=== PATIENT | male | born 1955 | race Caucasian/White ===

== ENCOUNTER 2017-05-21 08:06 | Day surgery (SDC) | payer OTHER ==
[2017-05-19 11:34] VITALS: BMI 47.5
[~2017-05-21 08:06] MED LIST: LACTATED RINGERS 1,000 ML IV SCH; LIDOCAINE 1% 20 ML VIAL (10MG/ML) FOR IV START INTRADERMA PRN
[2017-05-21 09:12] VITALS: RESP 18; TEMP 98.1
[2017-05-21] MEDS ORDERED: PROPOFOL 10 MG/ML 20 ML VIAL IV ONE ×2 (09:31)
[2017-05-21] MEDS ORDERED: MIDAZOLAM 2 MG/2 ML VIAL ONE (09:31)
[2017-05-21] MEDS ORDERED: fentaNYL (PF) 50 MCG/ML 2 ML AMP ONE (09:31)
[2017-05-21] MEDS ORDERED: LIDOCAINE 1% INJ 10MG/ML (20 ML MDV) ONE ×2 (09:31)
--- NOTE | 2017-05-21 09:35 | P.GSHP ---
History of Present Illness H&P Date: 05/21/17 Chief Complaint: History of right colon cancer This a 61-year-old male who has a previous history of right colon cancer. Patient underwent laparoscopic right colectomy. He presents today for screening colonoscopy. Past Medical History Past Medical History: Cancer, Deep Vein Thrombosis (DVT), GERD/Reflux, Hypertension Additional Past Medical History / Comment(s): swelling ankles, DVT left leg in the 80's, carpal tunnel, varicose veins, hx colon cancer-no chemo/radiation History of Any Multi-Drug Resistant Organisms: None Reported Past Surgical History: Bowel Resection, Hernia Repair, Joint Replacement, Orthopedic Surgery Additional Past Surgical History / Comment(s): 06/03/16 total L knee arthroplasty. Other surgical hx: Feb 2015 RT COLECTOMY, arthroscopy left knee,carpel tunnel Past Anesthesia/Blood Transfusion Reactions: Previous Problems w/ Anesthesia Additional Past Anesthesia/Blood Transfusion Reaction / Comment(s): woke up during knee surgery Smoking Status: Former smoker - Past Family History Mother Family Medical History: Cancer Additional Family Medical History / Comment(s): THROAT,BREAST Father Family Medical History: Cancer Additional Family Medical History / Comment(s): COLON Brother(s) Family Medical History: Cancer Medications and Allergies Home Medications Medication Instructions Recorded Confirmed Type Ascorbic Acid [Vitamin C] 1,000 mg PO DAILY 02/07/15 05/21/17 History Hydrochlorothiazide [Hydrodiuril] 12.5 mg PO DAILY 02/07/15 05/21/17 History Metoprolol Succinate (ER) [Toprol 25 mg PO QAM 02/07/15 05/21/17 History XL] Multivitamins, Thera [Multivitamin 1 tab PO DAILY 02/07/15 05/21/17 History (formulary)] Omeprazole [PriLOSEC] 40 mg PO DAILY 02/07/15 05/21/17 History Sertraline [Zoloft] 50 mg PO QAM 02/07/15 05/21/17 History Sildenafil Citrate [Viagra] 100 mg PO DAILY PRN 02/07/15 05/21/17 History Vitamin B Complex 1 cap PO DAILY 02/07/15 05/21/17 History Losartan [Cozaar] 100 mg PO QAM 07/26/15 05/21/17 History Cholecalciferol [Vitamin D3] 1,000 unit PO DAILY 05/29/16 05/21/17 History Aspirin 325 mg PO DAILY #30 tab 06/05/16 05/21/17 Rx Glucosam/Matthew-Msm1/C/Jagjit/Bosw 1 each PO DAILY 05/19/17 05/21/17 History [Glucosamine-Chondroitin Tablet] [place]-3/Dha/Epa/Fish Oil [Fish Oil 1,600 mg PO DAILY 05/19/17 05/21/17 History EC 1,200 mg Softgel] Allergies Allergy/AdvReac Type Severity Reaction Status Date / Time venom-honey bee Allergy Swelling,re Verified 05/21/17 09:03 [bee venom (honey bee)] dness Surgical - Exam Vital Signs Temp Pulse Resp BP Pulse Ox 98.1 F 68 18 132/86 96 05/21/17 09:11 05/21/17 09:11 05/21/17 09:11 05/21/17 09:11 05/21/17 09:11 - General well developed, no distress - Eyes PERRL - ENT normal pinna - Neck no masses - Respiratory normal expansion - Cardiovascular Rhythm: regular - Abdomen Abdomen: soft, non tender Assessment and Plan Assessment: History of right colon cancer. We'll perform colonoscopy.
--- NOTE | 2017-05-21 09:51 | P.OP ---
Date of Procedure: 05/21/17 Preoperative Diagnosis: Screening colonoscopy, history of right colon cancer Postoperative Diagnosis: Sigmoid colon polyp Mild diverticulosis Procedure(s) Performed: Colonoscopy Anesthesia: MAC Surgeon: Mikey Lopez Pathology: other (Sigmoid colon polyp) Condition: stable Disposition: PACU Description of Procedure: The patient's placed on the endoscopy table in the lateral position. He received IV sedation. Digital rectal exam was performed which revealed no abnormalities. The flexible colonoscope was then placed patient anus passed throughout the entire colon. The patient appears right colectomy. The ileocolonic anastomosis was visualized. The scope was withdrawn. The transverse colon appeared normal. The cecum descending colon appeared normal. In the sigmoid colon was a few scattered diverticula. At the 30 cm alma there was a punctate polyp. This this was removed with a snare. The scope was then brought back the rectum and this appeared normal. Scope was withdrawn for patient.
[2017-05-21 10:09] VITALS: BP 116/80; PULSE 55
== END 2017-05-21 11:01 | disposition home or self-care (01) ==
LOC: ORWHC2ENDO 08:06
PROVIDERS: ATTEND Surgery
DX: Z12.11 Encounter for screening for malignant neoplasm of colon (principal); D12.5 Benign neoplasm of sigmoid colon; K57.30 Diverticulosis of large intestine without perforation or abscess without bleeding; Z90.49 Acquired absence of other specified parts of digestive tract; Z85.038 Personal history of other malignant neoplasm of large intestine; K21.9 Gastro-esophageal reflux disease without esophagitis; I10 Essential (primary) hypertension; Z87.891 Personal history of nicotine dependence; F39 Unspecified mood [affective] disorder; Z86.718 Personal history of other venous thrombosis and embolism; Z79.82 Long term (current) use of aspirin; Z79.899 Other long term (current) drug therapy; Z91.030 Bee allergy status
CPT/HCPCS: 88305; 45385; J2250; J2001; J3010; J2704

== ENCOUNTER → 2017-10-23 | Outpatient (CLI) | payer OTHER ==
[2017-10-23 10:55] LABS: HGB 14.5 gm/dL (13.0-17.5); MCH 27.5 pg (25.0-35.0); MCHC 33.6 g/dL (31.0-37.0); MCV 81.7 fL (80.0-100.0); Mean Platelet Volume 7.6; Platelet Count 342 k/uL (150-450); RBC 5.27 m/uL (4.30-5.90); RDW 14.4 % (11.5-15.5); WBC 8.7 k/uL (3.8-10.6)
[2017-10-23 10:57] LABS: Appearance,Urine Clear (Clear); Bilirubin,Urine Negative (Negative); Blood,Urine Negative (Negative); Color,Urine Yellow; Glucose,Urine (UA) Negative (Negative); Ketones,Urine Negative (Negative); Leukocyte Esterase,Urine Trace (Negative); Mucus,Urine Rare /hpf; Nitrite,Urine Negative (Negative); PH, Urine 6.5 (5.0-8.0); Protein,Urine Negative (Negative); RBC,Urine 1 /hpf (0-5); Specific Gravity,Urine 1.011 (1.001-1.035); Urobilinogen,Urine <2.0 mg/dL (<2.0); WBC,Urine 1 /hpf (0-5)
[2017-10-23 11:04] LABS: INR 1.1 (<1.2); Prothrombin Time 10.3 sec (9.0-12.0)
[2017-10-23 11:15] LABS: ALT 30 U/L (21-72); AST 19 U/L (17-59); Alkaline Phosphatase 45 U/L (38-126); Anion Gap 11 mmol/L; Blood Urea Nitrogen 16 mg/dL (9-20); Calcium 9.9 mg/dL (8.4-10.2); Carbon Dioxide 29 mmol/L (22-30); Chloride 100 mmol/L (98-107); Glucose 98 mg/dL (74-99); Potassium 4.4 mmol/L (3.5-5.1); Sodium 140 mmol/L (137-145); Total Bilirubin 0.7 mg/dL (0.2-1.3); Total Protein 7.1 g/dL (6.3-8.2)
== END | disposition home or self-care (01) ==
LOC: LABPAT 10:32
PROVIDERS: ATTEND Orthopaedic Surgery
DX: Z01.812 Encounter for preprocedural laboratory examination (principal); Z01.818 Encounter for other preprocedural examination
CPT/HCPCS: 36415; 80053; 81001; 85027; 85610; 85730; 87070

== ENCOUNTER 2017-11-03 06:19 | Inpatient (IN) | payer OTHER ==
[2017-10-30 15:15] VITALS: BMI 48.8
[~2017-11-03 06:19] MED LIST changes: +MORPHINE SULFATE 4 MG/0.8 ML SYRINGE (INJ) IV PRN; +ONDANSETRON ODT 4 MG TAB PO ONE; +ceFAZolin IN SWFI 2 GM/20 ML SYRINGE IVP ONE
[2017-11-03] MEDS ORDERED: ONDANSETRON 4 MG/2 ML VIAL IVP ONE (07:24)
[2017-11-03] MEDS ORDERED: ceFAZolin 3,000 MG in SODIUM CHLORIDE 0.9% IRRIGATIO 3,000 ML IRRIGATION ONE (08:23)
[2017-11-03] MEDS ORDERED: IV FLUID CONTINUATION 1,000 ML IV ONE ×2 (10:09)
[2017-11-03] MEDS ORDERED: TEMAZEPAM 15 MG CAP PO PRN (10:11)
[2017-11-03] MEDS ORDERED: HYDROcodone/APAP 5-325MG 1 EACH TAB PO PRN (10:11)
[2017-11-03] MEDS ORDERED: MORPHINE SULFATE 4 MG/0.8 ML SYRINGE (INJ) IVP PRN ×4 (10:11→10:23)
[2017-11-03] MEDS ORDERED: BISACODYL 10 MG SUPP RECTAL PRN (10:11)
[2017-11-03] MEDS ORDERED: MAGNESIUM HYDROXIDE 2,400 MG/10 ML CUP PO PRN (10:11)
[2017-11-03] MEDS ORDERED: ONDANSETRON 4 MG/2 ML VIAL IVP PRN (10:11)
[2017-11-03] MEDS ORDERED: NALOXONE 0.4 MG/ML 1 ML VIAL IV PRN (10:11)
[2017-11-03] MEDS ORDERED: NA PHOS,M-B/NA PHOS,DI-BA 133 ML ENEMA RECTAL PRN (10:11)
--- NOTE | 2017-11-03 10:51 | XR ---
EXAMINATION TYPE: XR knee limited RT DATE OF EXAM: 11/03/2017 CLINICAL HISTORY: Postoperative evaluation Two views of the right knee are submitted. Identified are changes of total knee arthroplasty with femoral and tibial components appearing well seated. Postsurgical soft tissue changes are noted. Alignment is anatomic.
[2017-11-03] MEDS: HYDROcodone/APAP 5-325MG 1 EACH TAB PO PRN ×2 (13:51→20:05)
[2017-11-03] MEDS: LACTATED RINGERS 1,000 ML IV SCH ×2 (13:54→22:25)
[2017-11-03] MEDS ORDERED: WARFARIN 5 MG TAB PO ONE (18:00)
[2017-11-03] MEDS: hydrOXYzine PAMOATE 25 MG CAP PO PRN (18:13)
[2017-11-03] MEDS ORDERED: ACETAMINOPHEN TAB 500 MG TAB PO PRN (18:51)
--- NOTE | 2017-11-03 19:04 | P.CONS ---
History of Present Illness - Reason for Consult Consult date: 11/03/17 - History of Present Illness Leonid Andersen is a 62-year-old male with known history of severe osteoarthritis of the right knee that failed conservative management, he was admitted to [facility] by Dr. Roberson and underwent right total knee arthroplasty today. Medical consultation was requested for management while hospitalized. Past Medical History Past Medical History: Cancer, Deep Vein Thrombosis (DVT), GERD/Reflux, Hypertension, Osteoarthritis (OA) Additional Past Medical History / Comment(s): swelling ankles, DVT left leg in the 's, carpal tunnel, varicose veins, hx colon cancer-no chemo/radiation History of Any Multi-Drug Resistant Organisms: None Reported Past Surgical History: Bowel Resection, Hernia Repair, Joint Replacement, Orthopedic Surgery Additional Past Surgical History / Comment(s): L knee arthroplasty, 2015 RT COLECTOMY, arthroscopy left knee,carpel tunnel, TRK Past Anesthesia/Blood Transfusion Reactions: Previous Problems w/ Anesthesia Additional Past Anesthesia/Blood Transfusion Reaction / Comm: woke up during knee surgery Past Psychological History: Anxiety Additional Psychological History / Comment(s): . 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 , quit smoking 1998, smoked for 20 yrs,1ppd Past Drug Use History: None Reported - Past Family History Mother Family Medical History: Cancer Additional Family Medical History / Comment(s): THROAT,BREAST Father Family Medical History: Cancer Additional Family Medical History / Comment(s): COLON Brother(s) Family Medical History: Cancer Medications and Allergies Home Medications Medication Instructions Recorded Confirmed Type Ascorbic Acid [Vitamin C] 1,000 mg PO DAILY 02/07/15 11/03/17 History Hydrochlorothiazide [Hydrodiuril] 12.5 mg PO DAILY 02/07/15 11/03/17 History Metoprolol Succinate (ER) [Toprol 25 mg PO QAM 02/07/15 11/03/17 History XL] Multivitamins, Thera [Multivitamin 1 tab PO DAILY 02/07/15 11/03/17 History (formulary)] Omeprazole [PriLOSEC] 40 mg PO DAILY 02/07/15 11/03/17 History Sertraline [Zoloft] 50 mg PO QAM 02/07/15 11/03/17 History Sildenafil Citrate [Viagra] 100 mg PO DAILY PRN 02/07/15 11/03/17 History Vitamin B Complex 1 cap PO DAILY 02/07/15 11/03/17 History Losartan [Cozaar] 100 mg PO QAM 07/26/15 11/03/17 History Cholecalciferol [Vitamin D3] 1,000 unit PO DAILY 05/29/16 11/03/17 History Glucosam/Matthew-Msm1/C/Jagjit/Bosw 1 tab PO DAILY 05/19/17 11/03/17 History [Glucosamine-Chondroitin Tablet] [place]-3/Dha/Epa/Fish Oil [Fish Oil 1 cap PO DAILY 05/19/17 11/03/17 History EC 1,200 mg Softgel] Aspirin 81 mg PO DAILY 10/30/17 11/03/17 History Topiramate [Topamax] 50 mg PO DAILY 10/30/17 11/03/17 History Acetaminophen Tab [Tylenol Tab] 1,000 mg PO Q6HR PRN 11/03/17 11/03/17 History Allergies Allergy/AdvReac Type Severity Reaction Status Date / Time venom-honey bee Allergy Swelling,re Verified 11/03/17 11:12 [bee venom (honey bee)] dness morphine AdvReac Severe Nausea & Verified 11/03/17 18:15 Vomiting Physical Exam Vitals: Vital Signs Temp Pulse Pulse Resp BP BP Pulse Ox 11/03/17 15:00 98.1 F 72 16 125/77 93 L 11/03/17 13:15 72 16 122/71 99 11/03/17 13:00 77 16 127/70 96 11/03/17 12:45 74 16 119/76 97 11/03/17 12:30 76 16 116/66 98 11/03/17 12:15 74 16 116/68 95 11/03/17 12:00 72 16 108/58 95 11/03/17 11:45 72 16 122/68 94 L 11/03/17 11:30 74 16 123/66 96 11/03/17 11:15 98.4 F 70 16 114/70 96 11/03/17 10:53 67 16 122/75 96 11/03/17 10:38 68 16 136/78 97 04/24/18 10:23 70 18 110/62 96 11/03/17 10:08 96.8 F L 73 22 108/65 99 11/03/17 06:51 98.1 F 70 18 139/75 95 Intake and Output 11/03/17 11/03/17 11/03/17 06:59 14:59 22:59 Intake Total 1451 Output Total 200 Balance 1251 Intake: IV 1451 Lactated Ringers 1,000 ml 300 @ 100 mls/hr IV .Q10H [facility] Rx#:[id number] Output: Estimated Blood Loss 200 Other: # Voids 650 Weight 163.293 kg Patient is alert and oriented 3 in no apparent distress HEENT head normocephalic and atraumatic Neck is supple no JVD no goiter no lymphadenopathy Chest exam is clear to auscultation no crackles no wheezing Cardiac exam reveals regular heart sounds S1 and S2 no gallops no murmurs Abdomen is soft nontender no organomegaly with normal bowel sounds Extremity exam reveals no edema no cyanosis or clubbing Neurological examination reveals no gross focal deficit Assessment and Plan Plan: #1 osteoarthritis right knee failed conservative management status post right total knee arthroplasty done today by Dr. Madrigal #2 DVT prophylaxis and pain management per orthopedic protocol #3 underlying history of hypertension resume home medication and monitor blood pressure closely #4 reaction to morphine with dizziness and cold sweats and nausea, avoid further morphine use, patient takes [place] at home and this was resumed #5 underlying history of severe osteoarthritis with previous history of left total knee arthroplasty #6 medication and labs were reviewed and medication reorderd Will check labs and follow-up in a.m.
[2017-11-03] MEDS: SENNOSIDES-DOCUSATE SODIUM 1 EACH TAB PO SCH (20:04)
[2017-11-04] MEDS: HYDROcodone/APAP 5-325MG 1 EACH TAB PO PRN (05:21)
[2017-11-04] MEDS: hydrOXYzine PAMOATE 25 MG CAP PO PRN (05:22)
[2017-11-04] MEDS: LACTATED RINGERS 1,000 ML IV SCH ×2 (05:44→18:04)
[2017-11-04 07:30] LABS: Basophils % (A) 0 %; Eosinophils % (A) 0 %; HCT 37.4 % (39.0-53.0); HGB 12.3 gm/dL (13.0-17.5); Lymphocytes # (A) 1.3 k/uL (1.0-4.8); Lymphocytes % (A) 12 %; MCH 26.9 pg (25.0-35.0); MCHC 32.9 g/dL (31.0-37.0); MCV 81.9 fL (80.0-100.0); Mean Platelet Volume 7.8; Monocytes % (A) 10 %; Neutrophils # (A) 8.2 k/uL (1.3-7.7); Neutrophils % (A) 76 %; Platelet Count 300 k/uL (150-450); RBC 4.56 m/uL (4.30-5.90); RDW 14.3 % (11.5-15.5); WBC 10.7 k/uL (3.8-10.6)
[2017-11-04 07:31] LABS: INR 1.2 (<1.2); Prothrombin Time 11.2 sec (9.0-12.0)
[2017-11-04] MEDS: PANTOPRAZOLE 40 MG TABLET PO SCH (07:37)
--- NOTE | 2017-11-04 08:31 | P.PN ---
Subjective Progress Note Date: 11/04/17 Principal diagnosis: Status post right total knee arthroplasty This is a 62 year-old male post right total knee arthroplasty. This is post-op day 1. The patient was evaluated at the bedside today. The patient denies nausea, vomiting, abdominal pain, shortness of breath, and chest pain this morning. He states his pain is controlled at this time. He states that he is experiencing nausea after morphine yesterday states he is feeling better this morning. The patient has not been up with physical therapy yet this morning. Objective - Vital Signs Vital signs: Vital Signs Temp 98.1 F 11/04/17 07:00 Pulse 61 11/04/17 07:00 Resp 16 11/04/17 07:00 BP 159/91 11/04/17 07:00 Pulse Ox 99 11/04/17 07:00 Intake & Output 11/03/17 11/04/17 11/04/17 18:59 06:59 18:59 Intake Total 1451 2890 Output Total 200 752 Balance 1251 2138 Weight 163.293 kg Intake: IV 1451 1600 Lactated Ringers 1,000 ml 300 1600 @ 100 mls/hr IV .Q10H [facility] Rx#:[id number] Intake, IV Titration 210 Amount Lactated Ringers 1,000 ml 160 @ 20 mls/hr IV .Q24H [facility] Rx#:[id number] ceFAZolin 3 gm In Sodium 50 Chloride 0.9% 50 ml @ 50 mls/hr IVPB Q8HR [facility] Rx#: [id number] Oral 1080 Output: Urine 752 Estimated Blood Loss 200 Other: # Voids 650 3 - Exam The patient does not appear in acute distress. Alert and orientated x3. Dressing is clean dry and intact. Incision appears fine with no erythema or active drainage. Calf is soft and nontender. Good foot and ankle motion without difficulty. Sensation and circulatory status is intact. - Labs CBC & Chem 7: 11/04/17 07:03 Labs: Abnormal Lab Results - Last 24 Hours (Table) 11/04/17 11/04/17 Range/Units 07:03 07:03 WBC 10.7 H (3.8-10.6) k/uL Hgb 12.3 L (13.0-17.5) gm/dL Hct 37.4 L (39.0-53.0) % Neutrophils # 8.2 H (1.3-7.7) k/uL INR 1.2 H (<1.2) Assessment and Plan (1) Primary localized osteoarthritis of right knee Current Visit: Yes Status: Acute Code(s): M17.11 - UNILATERAL PRIMARY OSTEOARTHRITIS, RIGHT KNEE SNOMED Code(s): 640385402 (2) Status post total right knee replacement Current Visit: Yes Status: Acute Code(s): Z96.651 - PRESENCE OF RIGHT ARTIFICIAL KNEE JOINT SNOMED Code(s): 9706956904077 Plan: 1. Continue pain control 2. Anticoagulation with Coumadin per protocol 3. Start physical therapy, CPM, and ambulation 4. Anticipate discharge home with home care likely on Thursday.
[2017-11-04] MEDS: HYDROCHLOROTHIAZIDE 12.5 MG CAP PO SCH (08:35)
[2017-11-04] MEDS: METOPROLOL SUCCINATE (ER) 25 MG TAB.ER.24H PO SCH (08:35)
[2017-11-04] MEDS: ASPIRIN 81 MG PO SCH (08:35)
[2017-11-04] MEDS: SERTRALINE 50 MG TAB PO SCH (08:35)
[2017-11-04] MEDS: TOPIRAMATE 25 MG TAB PO SCH (08:35)
[2017-11-04] MEDS: LOSARTAN 50 MG TAB PO SCH (08:35)
[2017-11-04] MEDS ORDERED: NON-FORMULARY DRUG (Glucosam/Chon-Msm1/C/Mang/Bosw [Glucosamine-Chondroitin Tablet] 1 TAB) PO SCH (09:00)
[2017-11-04] MEDS ORDERED: NON-FORMULARY DRUG (Omega-3/Dha/Epa/Fish Oil [Fish Oil Ec 1,200 Mg Softgel] 1 CAP) PO SCH (09:00)
[2017-11-04] MEDS: KETOROLAC 30 MG/ML 1 ML VIAL IVP SCH ×2 (11:00→17:43)
[2017-11-04] MEDS: B COMPLEX-VIT C-VIT E-ZINC 1 EACH TAB PO SCH (13:07)
[2017-11-04] MEDS: ASCORBIC ACID 500 MG TAB PO SCH (13:07)
[2017-11-04] MEDS: CHOLECALCIFEROL 1,000 UNIT TAB PO SCH (13:07)
[2017-11-04] MEDS: MULTIVITAMINS, THERA 1 EACH TAB PO SCH (13:07)
[2017-11-04] MEDS ORDERED: MORPHINE ORAL SOLN 10 MG/5 ML CUP PO PRN ×3 (13:47→13:51)
[2017-11-04] MEDS ORDERED: WARFARIN 5 MG TAB PO ONE (18:00)
--- NOTE | 2017-11-04 18:45 | P.PN ---
Subjective Progress Note Date: 11/04/17 Leonid Andersen is a 62-year-old male with known history of severe osteoarthritis of the right knee that failed conservative management, he was admitted to [facility] by Dr. Roberson and underwent right total knee arthroplasty today. Medical consultation was requested for management while hospitalized. On 11/04/2017 patient is alert and oriented 3 in no apparent distress he is complaining of right knee pain and movement limitations otherwise no significant complaints there is no fever or chills no headache no dizziness no chest pain no shortness of breath no cough no nausea or vomiting no abdominal pain and no urinary symptoms Objective - Vital Signs Vital signs: Vital Signs Temp 97.5 F L 11/04/17 15:00 Pulse 65 11/04/17 15:00 Resp 18 11/04/17 15:00 BP 147/87 11/04/17 15:00 Pulse Ox 95 11/04/17 15:00 Intake & Output 11/03/17 11/04/17 11/04/17 18:59 06:59 18:59 Intake Total 1451 2890 0 Output Total 200 752 Balance 1251 2138 0 Weight 163.293 kg 163.293 kg Intake: IV 1451 1600 900 Lactated Ringers 1,000 ml 300 1600 900 @ 100 mls/hr IV .Q10H [facility] Rx#:[id number] Intake, IV Titration 210 Amount Lactated Ringers 1,000 ml 160 @ 20 mls/hr IV .Q24H [facility] Rx#:[id number] ceFAZolin 3 gm In Sodium 50 Chloride 0.9% 50 ml @ 50 mls/hr IVPB Q8HR [facility] Rx#: [id number] Oral 1080 1150 Output: Urine 752 Estimated Blood Loss 200 Other: Voiding Method Urinal # Voids 650 3 4 - Exam Patient is alert and oriented 3 in no apparent distress HEENT head normocephalic and atraumatic Neck is supple no JVD no goiter no lymphadenopathy Chest exam is clear to auscultation no crackles no wheezing Cardiac exam reveals regular heart sounds S1 and S2 no gallops no murmurs Abdomen is soft nontender no organomegaly with normal bowel sounds Extremity exam reveals no edema no cyanosis or clubbing Neurological examination reveals no gross focal deficit - Labs CBC & Chem 7: 11/04/17 07:03 Labs: Abnormal Lab Results - Last 24 Hours (Table) 04/25/18 04/25/18 Range/Units 07:03 07:03 WBC 10.7 H (3.8-10.6) k/uL Hgb 12.3 L (13.0-17.5) gm/dL Hct 37.4 L (39.0-53.0) % Neutrophils # 8.2 H (1.3-7.7) k/uL INR 1.2 H (<1.2) Assessment and Plan Plan: #1 osteoarthritis right knee failed conservative management status post right total knee arthroplasty done today by Dr. Madrigal #2 DVT prophylaxis and pain management per orthopedic protocol #3 underlying history of hypertension resume home medication and monitor blood pressure closely #4 reaction to morphine with dizziness and cold sweats and nausea, avoid further morphine use, patient takes [place] at home and this was resumed #5 underlying history of severe osteoarthritis with previous history of left total knee arthroplasty #6 medication and labs were reviewed and medication Continue current care, plan by orthopedic for discharge on Thursday will follow
[2017-11-04 20:32] VITALS: RESP 16
[2017-11-04] MEDS: SENNOSIDES-DOCUSATE SODIUM 1 EACH TAB PO SCH (21:21)
[2017-11-05] MEDS: KETOROLAC 30 MG/ML 1 ML VIAL IVP SCH ×3 (00:49→12:18)
[2017-11-05] MEDS: LACTATED RINGERS 1,000 ML IV SCH ×2 (06:56→12:02)
[2017-11-05 07:23] LABS: INR 1.3 (<1.2); Prothrombin Time 12.1 sec (9.0-12.0)
[2017-11-05 07:27] LABS: Basophils # (A) 0.1 k/uL (0-0.2); Basophils % (A) 1 %; Eosinophils # (A) 0.1 k/uL (0-0.7); Eosinophils % (A) 1 %; HGB 11.9 gm/dL (13.0-17.5); Lymphocytes # (A) 1.6 k/uL (1.0-4.8); Lymphocytes % (A) 15 %; MCH 27.1 pg (25.0-35.0); MCHC 32.9 g/dL (31.0-37.0); MCV 82.3 fL (80.0-100.0); Mean Platelet Volume 7.4; Monocytes # (A) 1.1 k/uL (0-1.0); Monocytes % (A) 10 %; Neutrophils % (A) 72 %; Platelet Count 293 k/uL (150-450); RBC 4.38 m/uL (4.30-5.90); RDW 14.3 % (11.5-15.5)
[2017-11-05 07:33] LABS: Albumin 3.4 g/dL (3.5-5.0); Calcium 8.9 mg/dL (8.4-10.2); Potassium 3.8 mmol/L (3.5-5.1); Total Bilirubin 1.1 mg/dL (0.2-1.3)
[2017-11-05 08:16] VITALS: TEMP 98.8
[2017-11-05 08:17] VITALS: BP 139/71; PULSE 78
[2017-11-05] MEDS: METOPROLOL SUCCINATE (ER) 25 MG TAB.ER.24H PO SCH (08:33)
[2017-11-05] MEDS: HYDROCHLOROTHIAZIDE 12.5 MG CAP PO SCH (08:33)
[2017-11-05] MEDS: ASPIRIN 81 MG PO SCH (08:33)
[2017-11-05] MEDS: SERTRALINE 50 MG TAB PO SCH (08:33)
[2017-11-05] MEDS: TOPIRAMATE 25 MG TAB PO SCH (08:33)
[2017-11-05] MEDS: PANTOPRAZOLE 40 MG TABLET PO SCH (08:33)
[2017-11-05] MEDS: LOSARTAN 50 MG TAB PO SCH (08:33)
--- NOTE | 2017-11-05 08:33 | P.DS ---
Providers Date of admission: 11/03/17 06:19 Expected date of discharge: 11/05/17 Attending physician: Eddie Roberson Consults: 11/03/17 10:11 Consult Physician Routine Consulting Provider: Gill Agarwal Consult Reason/Comments: medical management Do you want consulting provider notified?: Yes 11/03/17 10:49 Consult Physician Routine Consulting Provider: Ki Higgins Consult Reason/Comments: medical management Do you want consulting provider notified?: Yes Primary care physician: Gill Agarwal - Discharge Diagnosis(es) (1) Primary localized osteoarthritis of right knee Current Visit: Yes Status: Acute (2) Status post total right knee replacement Current Visit: Yes Status: Acute Hospital Course: This is a pleasant 62-year-old male last seen in our office with complaints of right knee pain. Patient has known history of degenerative arthritis of the right knee and presented to discuss options. After discussion and consideration , patient elected to proceed with a total knee arthroplasty of the right knee. The patient was seen preoperatively and medically cleared for surgery by Dr. Agarwal. The patient was admitted to [facility] and underwent right total knee arthroplasty on 11/03/[address] Roberson. The procedure was performed without complications or sequelae. The patient has done well postoperatively. The patient was seen and evaluated at bedside today and denies any new complaints. Pain is reasonably controlled. Dressing is clean dry and intact. Incision looks fine with no erythema or active drainage. Calf is soft and nontender. The patient has full foot and ankle motion without difficulty. Patient's right lower extremity is neurovascular intact. Patient is orthopedically stable for discharge to home today. Pertinent Studies: Laboratory Tests 11/05/17 11/05/17 11/05/17 06:38 06:38 06:38 WBC 11.0 H RBC 4.38 Hgb 11.9 L Hct 36.0 L PT 12.1 H INR 1.3 H Glucose 102 H Alkaline Phosphatase 31 L Total Protein 6.0 L Albumin 3.4 L Patient Condition at Discharge: Stable Plan - Discharge Summary Discharge Rx Participant: Yes New Discharge Prescriptions: New Aspirin 325 mg PO DAILY #30 tab HYDROcodone/APAP 5-325MG [Gem 5] 1 - 2 each PO Q4-6H PRN #60 tab PRN Reason: Pain Sennosides-Docusate Sodium [Senokot-S] 2 tab PO DAILY #30 tablet Warfarin [Coumadin] 2.5 mg PO DIRECTED #30 tab No Action Multivitamins, Thera [Multivitamin (formulary)] 1 tab PO DAILY Vitamin B Complex 1 cap PO DAILY Ascorbic Acid [Vitamin C] 1,000 mg PO DAILY Sertraline [Zoloft] 50 mg PO QAM Sildenafil Citrate [Viagra] 100 mg PO DAILY PRN PRN Reason: e.d. Omeprazole [PriLOSEC] 40 mg PO DAILY Metoprolol Succinate (ER) [Toprol XL] 25 mg PO QAM Hydrochlorothiazide [Hydrodiuril] 12.5 mg PO DAILY Losartan [Cozaar] 100 mg PO QAM Cholecalciferol [Vitamin D3] 1,000 unit PO DAILY Glucosam/Matthew-Msm1/C/Jagjit/Bosw [Glucosamine-Chondroitin Tablet] 1 tab PO DAILY [place]-3/Dha/Epa/Fish Oil [Fish Oil EC 1,200 mg Softgel] 1 cap PO DAILY Topiramate [Topamax] 50 mg PO DAILY Aspirin 81 mg PO DAILY Acetaminophen Tab [Tylenol Tab] 1,000 mg PO Q6HR PRN PRN Reason: Pain Discharge Medication List Ascorbic Acid [Vitamin C] 1,000 mg PO DAILY 02/07/15 [History] Hydrochlorothiazide [Hydrodiuril] 12.5 mg PO DAILY 02/07/15 [History] Metoprolol Succinate (ER) [Toprol XL] 25 mg PO QAM 02/07/15 [History] Multivitamins, Thera [Multivitamin (formulary)] 1 tab PO DAILY 02/07/15 [History ] Omeprazole [PriLOSEC] 40 mg PO DAILY 02/07/15 [History] Sertraline [Zoloft] 50 mg PO QAM 02/07/15 [History] Sildenafil Citrate [Viagra] 100 mg PO DAILY PRN 02/07/15 [History] Vitamin B Complex 1 cap PO DAILY 02/07/15 [History] Losartan [Cozaar] 100 mg PO QAM 07/26/15 [History] Cholecalciferol [Vitamin D3] 1,000 unit PO DAILY 05/29/16 [History] Glucosam/Matthew-Msm1/C/Jagjit/Bosw [Glucosamine-Chondroitin Tablet] 1 tab PO DAILY 05/19/17 [History] [place]-3/Dha/Epa/Fish Oil [Fish Oil EC 1,200 mg Softgel] 1 cap PO DAILY 05/19/17 [History] Aspirin 81 mg PO DAILY 10/30/17 [History] Topiramate [Topamax] 50 mg PO DAILY 10/30/17 [History] Acetaminophen Tab [Tylenol Tab] 1,000 mg PO Q6HR PRN 11/03/17 [History] Aspirin 325 mg PO DAILY #30 tab 11/05/17 [Rx] HYDROcodone/APAP 5-325MG [Gem 5] 1 - 2 each PO Q4-6H PRN #60 tab 11/05/17 [Rx] Sennosides-Docusate Sodium [Senokot-S] 2 tab PO DAILY #30 tablet 11/05/17 [Rx] Warfarin [Coumadin] 2.5 mg PO DIRECTED #30 tab 11/05/17 [Rx] Follow up Appointment(s)/Referral(s): Eddie Roberson DO [Doctor of Osteopathic Medicine] - 2 Weeks [facility], [NON-STAFF] - Ambulatory/Diagnostic Orders: Continuous Passive Motion (CPM) Machine [DME.AMB1] Time Frame: 3 Weeks, Location : Determined By Patient Activity/Diet/Wound Care/Special Instructions: Weightbearing as tolerated with a walker Coumadin 2.5 mg 1 by mouth every other day for 7 days then take Aspirin 325mg daily for 1 month CPM 5-6 hours daily May shower in 3 days if no drainage from incision Keep incision clean and dry Call [facility] [phone] with questions or concerns [facility] - [phone] - Please call once home to arrange delivery of CPM Start CPM at 45 degrees then increase by 5 degrees every time on CPM as patient tolerates. Maximum total of 15 degrees every 24 hours. Discharge Disposition: HOME WITH HOME HEALTH SERVICES
[2017-11-05] MEDS: CHOLECALCIFEROL 1,000 UNIT TAB PO SCH (08:34)
[2017-11-05] MEDS: MULTIVITAMINS, THERA 1 EACH TAB PO SCH (08:34)
[2017-11-05] MEDS: B COMPLEX-VIT C-VIT E-ZINC 1 EACH TAB PO SCH (08:34)
[2017-11-05] MEDS: ASCORBIC ACID 500 MG TAB PO SCH (08:34)
--- NOTE | 2017-11-05 11:28 | P.PN ---
Subjective Progress Note Date: 11/05/17 Leonid Andersen is a 62-year-old male with known history of severe osteoarthritis of the right knee that failed conservative management, he was admitted to [facility] by Dr. Roberson and underwent right total knee arthroplasty today. Medical consultation was requested for management while hospitalized. 11/05/2017 patient will be discharged home today. He has been up and ambulating. Was able to walk stairs. White count has gone up from 10.7-11. He did have a low-grade temp of 99.8 to 1:00 this morning. Repeat temperature is 98.6. Patient denies any cough, diarrhea, any burning with urination. There is no cellulitis changes of the knee. Knee pain is controlled. Denies any nausea or vomiting. Denies any chest pain shortness of breath. Objective - Vital Signs Vital signs: Vital Signs Temp 98.8 F 11/05/17 07:56 Pulse 78 11/05/17 07:56 Resp 16 11/05/17 07:56 BP 139/71 11/05/17 07:56 Pulse Ox 97 11/05/17 07:56 Intake & Output 11/04/17 11/05/17 11/05/17 18:59 06:59 18:59 Intake Total 2049 2359 Balance 2049 236 Weight 163.293 kg Intake: IV 900 Lactated Ringers 1,000 ml 900 @ 100 mls/hr IV .Q10H [facility] Rx#:[id number] Oral 1150 2360 Other: Voiding Method Urinal Toilet Toilet Urinal # Voids 4 3 - Exam Head normocephalic Neck supple Lungs clear to auscultation bilaterally no wheezing or crackles Heart regular rate and rhythm S1-S2, no rub or gallop Abdomen is soft nontender nondistended positive bowel sounds no hepatosplenomegaly Extremities no edema of the lower extremities. Right knee, bruising noted along the incision site. No drainage. No evidence of cellulitis. Calf is nontender. Neuro alert and orientated to 3 - Labs CBC & Chem 7: 11/05/17 06:38 11/05/17 06:38 Labs: Abnormal Lab Results - Last 24 Hours (Table) 11/05/17 11/05/17 11/05/17 Range/Units 06:38 06:38 06:38 WBC 11.0 H (3.8-10.6) k/uL Hgb 11.9 L (13.0-17.5) gm/dL Hct 36.0 L (39.0-53.0) % Neutrophils # 8.0 H (1.3-7.7) k/uL Monocytes # 1.1 H (0-1.0) k/uL PT 12.1 H (9.0-12.0) sec INR 1.3 H (<1.2) Glucose 102 H (74-99) mg/dL Alkaline Phosphatase 31 L (38-126) U/L Total Protein 6.0 L (6.3-8.2) g/dL Albumin 3.4 L (3.5-5.0) g/dL Assessment and Plan Assessment: #1 osteoarthritis right knee failed conservative management status post right total knee arthroplasty done today by Dr. Roberson #2 DVT prophylaxis and pain management per orthopedic protocol #3 underlying history of hypertension resume home medication and monitor blood pressure closely #4 reaction to morphine with dizziness and cold sweats and nausea, avoid further morphine use, patient takes [place] at home and this was resumed #5 underlying history of severe osteoarthritis with previous history of left total knee arthroplasty #6 leukocytosis likely reactive after surgery. No evidence of any acute infection. Encouraged patient to use his incentive spirometer there may be some underlying atelectasis. Also will have patient have a repeat CBC in 1 week. Informed patient to monitor for any signs of infection. Patient is medically stable for discharge. We'll have him follow up with his PCP in 1 week I performed an examination of the patient and discussed their management with the physician Public Area Attendant. I have reviewed the Physician Public Area Attendant's notes and agree with the documented findings and plan of care
--- NOTE | 2017-11-05 13:16 | OP ---
OPERATIVE REPORT DATE OF PROCEDURE: 11/03/2017 SURGEON: Eddie Roberson DO. [employer] PROFESSOR: Jazmin Gil NP. PREOPERATIVE DIAGNOSIS: Degenerative joint disease with severe varus deformity. FINAL DIAGNOSIS: Degenerative joint disease with severe varus deformity. PROCEDURE PERFORMED: Right total knee replacement arthroplasty utilizing Jennifer Persona press fit components. DESCRIPTION OF PROCEDURE: Patient was taken to the operative suite and placed in supine position. Spinal anesthesia was performed by the department of anesthesiology. A Betadine prep was carried out over right knee from mid thigh to mid calf. Sterile drapes were applied in the usual manner. A medial parapatellar incision was developed. Medial retinaculum was incised as well as the synovium. The patella was everted and dislocated laterally as the knee brought in flexion and held in leg ortiz. An intramedullary cutting guide was right femur. Size 10 was selected. Appropriate cuts were developed. Provisionary component size 10 was impacted in position and appropriate component interface well maintained. The tibial cutting guide was aligned and appropriate wafer cut was performed. The wafer was removed and medial and lateral meniscus was excised in their entirety. A size 8 tibial metal back tray was selected. The 10 mm spacer was inserted and the tray was for motion, alignment and stability. Tibial tray was marked for position. Appropriate peg holes were developed in the tibia for further placement. The patella was shaped with a shelving planer. A size 41 patellar component was selected and appropriate stabilizing peg hole was . All trial components were component selection. Pulsavac antibiotic solution was utilized in preparation for final component. The trial size 8 trabecular metal 3-hole peg tibial plate was placed in position and impacted in pre-drilled holes. The final size 10 right femoral component was impacted in position. The final patellar component size 41 mm was placed into the pre-drilled hole and impacted. The final size 10 mm polyethylene component was inserted into the tibial tray and locked into position. exam and at this time a was performed allowing for guiding and position of the patellar component. The knee was placed in slight flexion. The knee was irrigated copiously with Pulsavac antibiotic solution. Superficial bleeding was controlled with electrocautery. The retinaculum was approximated with #3 Vicryl suture in horizontal mattress fashion. A #2 Quill suture was utilized in reinforcing retinaculum in running fashion. A 2-0 Vicryl suture was utilized for approximating the subcutaneous tissue. Skin was approximated with 3-0 Vicryl Quill suture in subcuticular closure. Dermabond was utilized in sealing the wound. Betadine, sterile pressure dressing was applied. Pneumatic tourniquet was deflated. Patient was transferred to the recovery room in satisfactory postop condition. GROSS PATHOLOGY: Evidence of severe tricompartment degenerative joint disease of the right knee with varus deformity. associated with tight lateral . MMODL / IJN: [id number] /
[2017-11-05] MEDS ORDERED: WARFARIN 10 MG TAB PO ONE (18:00)
== END 2017-11-05 14:29 | disposition home health service (06) | DRG 470 ==
LOC: 2ORMAIN 06:19 → 3SUR 10:48
PROVIDERS: ADMIT Orthopaedic Surgery; ATTEND Orthopaedic Surgery
PROC: 0SRC0JA Replacement of Right Knee Joint with Synthetic Substitute, Uncemented, Open Approach (ICD-10-PCS; principal; 2017-11-03 08:00)
DX: M17.11 Unilateral primary osteoarthritis, right knee (principal); F41.9 Anxiety disorder, unspecified; I10 Essential (primary) hypertension; Z96.652 Presence of left artificial knee joint; R11.0 Nausea; T40.2X5A Adverse effect of other opioids, initial encounter; R42 Dizziness and giddiness; M21.161 Varus deformity, not elsewhere classified, right knee; K21.9 Gastro-esophageal reflux disease without esophagitis; Z79.891 Long term (current) use of opiate analgesic; Z88.6 Allergy status to analgesic agent; Z91.030 Bee allergy status; Z79.899 Other long term (current) drug therapy; Z79.82 Long term (current) use of aspirin; Z80.3 Family history of malignant neoplasm of breast; Z80.0 Family history of malignant neoplasm of digestive organs; Z87.891 Personal history of nicotine dependence; Z87.19 Personal history of other diseases of the digestive system; Z90.89 Acquired absence of other organs; Z86.718 Personal history of other venous thrombosis and embolism; Z85.038 Personal history of other malignant neoplasm of large intestine; Z83.3 Family history of diabetes mellitus; Z82.49 Family history of ischemic heart disease and other diseases of the circulatory system
CPT/HCPCS: 80053; 85025; 85610; 88305; 88311

== ENCOUNTER → 2019-01-21 | Day surgery (SDC) | payer OTHER ==
[2019-01-19 09:57] VITALS: BMI 50.8
[~2019-01-21] MED LIST changes: -LIDOCAINE 1% 20 ML VIAL (10MG/ML) FOR IV START INTRADERMA PRN; -MORPHINE SULFATE 4 MG/0.8 ML SYRINGE (INJ) IV PRN; -ONDANSETRON ODT 4 MG TAB PO ONE; +PROPOFOL 10 MG/ML 20 ML VIAL IV ONE; -ceFAZolin IN SWFI 2 GM/20 ML SYRINGE IVP ONE
[2019-01-21 08:48] VITALS: TEMP 97.7
--- NOTE | 2019-01-21 09:12 | P.GSHP ---
History of Present Illness H&P Date: 01/21/19 Chief Complaint: History: Polyps This is a 63-year-old male who presents today for colonoscopy. Patient has a previous history of of colon polyps and right colectomy. Past Medical History Past Medical History: Cancer, Deep Vein Thrombosis (DVT), GERD/Reflux, Hypertension, Osteoarthritis (OA) Additional Past Medical History / Comment(s): swelling ankles, DVT left leg in the leg, varicose veins, hx colon cancer-no chemo/radiation, skin cancer History of Any Multi-Drug Resistant Organisms: None Reported Past Surgical History: Bowel Resection, Hernia Repair, Joint Replacement, Orthopedic Surgery Additional Past Surgical History / Comment(s): L knee arthroplasty, 2015 RT COLECTOMY, arthroscopy left knee,carpel tunnel, TOTAL RIGHT KNEE Past Anesthesia/Blood Transfusion Reactions: Previous Problems w/ Anesthesia Additional Past Anesthesia/Blood Transfusion Reaction / Comment(s): woke up during knee surgery Smoking Status: Former smoker - Past Family History Mother Family Medical History: Cancer Additional Family Medical History / Comment(s): THROAT,BREAST Father Family Medical History: Cancer Additional Family Medical History / Comment(s): COLON Brother(s) Family Medical History: Cancer Medications and Allergies Home Medications Medication Instructions Recorded Confirmed Type Ascorbic Acid [Vitamin C] 1,000 mg PO DAILY 02/07/15 01/19/19 History Hydrochlorothiazide [Hydrodiuril] 12.5 mg PO DAILY 02/07/15 01/21/19 History Metoprolol Succinate (ER) [Toprol 25 mg PO QAM 02/07/15 01/21/19 History XL] Multivitamins, Thera [Multivitamin 1 tab PO DAILY 02/07/15 01/19/19 History (formulary)] Omeprazole [PriLOSEC] 20 mg PO DAILY 02/07/15 01/21/19 History Sertraline [Zoloft] 50 mg PO QAM 02/07/15 01/21/19 History Sildenafil Citrate [Viagra] 100 mg PO DAILY PRN 02/07/15 01/21/19 History Vitamin B Complex 1 cap PO DAILY 02/07/15 01/19/19 History Losartan [Cozaar] 100 mg PO QAM 07/26/15 01/21/19 History Cholecalciferol [Vitamin D3 (25 1,000 unit PO DAILY 05/29/16 01/19/19 History Mcg = 1000 Iu)] [place]-3/Dha/Epa/Fish Oil [Fish Oil 1 cap PO DAILY 05/19/17 01/19/19 History EC 1,200 mg Softgel] Acetaminophen Tab [Tylenol] 1,000 mg PO Q6HR PRN 11/03/17 01/21/19 History Aspirin 81 mg PO DAILY 01/19/19 01/19/19 History Glucosamine Sulfate 500 mg PO DAILY 01/19/19 01/19/19 History Allergies Allergy/AdvReac Type Severity Reaction Status Date / Time venom-honey bee Allergy Swelling,re Verified 01/21/19 08:33 [bee venom (honey bee)] dness morphine AdvReac Severe Nausea & Verified 01/21/19 08:33 Vomiting Surgical - Exam Vital Signs Temp Pulse Resp BP Pulse Ox 97.7 F 85 18 137/82 97 01/21/19 08:37 01/21/19 08:37 01/21/19 08:37 01/21/19 08:37 01/21/19 08:37 Morbid obesity BMI 51 - General well developed, well nourished, no distress - Eyes PERRL - ENT normal pinna - Neck no masses - Respiratory normal expansion - Cardiovascular Rhythm: regular - Abdomen Abdomen: soft, non tender Assessment and Plan Assessment: History of colon polyps. We'll perform colonoscopy.
--- NOTE | 2019-01-21 09:26 | P.OP ---
Date of Procedure: 01/21/19 Preoperative Diagnosis: History of colon polyps Postoperative Diagnosis: Transverse colon polyp Diverticulosis Procedure(s) Performed: Colonoscopy Anesthesia: MAC Surgeon: Mikey Lopez Pathology: other (Colon polyp) Condition: stable Disposition: PACU Description of Procedure: The patient's placed on the endoscopy table in the lateral position. He received IV sedation. Digital rectal exam was performed which revealed no abnormalities. This prostate was symmetric without nodules. The flexible c olonoscope was then placed patient anus and passed throughout the entire colon. The ileocolonic anastomosis visualized. The anastomosis appeared to be near the hepatic flexure. Just distal to the anastomosis was a small sessile polyp. This removed with a cold forcep. Scope was withdrawn. The remainder the transverse colon appeared normal. In the descending and sigmoid: There is extensive diverticular changes. The scope was then brought back the rectum and this appeared normal. Scope withdrawn for patient.
[2019-01-21 09:28] VITALS: RESP 17
[2019-01-21 09:39] VITALS: BP 135/85; PULSE 66
== END ==
LOC: ORWHC2ENDO 08:19
PROVIDERS: ATTEND Surgery
DX: Z12.11 Encounter for screening for malignant neoplasm of colon (principal); Z86.010 Personal history of colon polyps; K63.5 Polyp of colon; K57.30 Diverticulosis of large intestine without perforation or abscess without bleeding; Z85.038 Personal history of other malignant neoplasm of large intestine; Z98.0 Intestinal bypass and anastomosis status; Z90.49 Acquired absence of other specified parts of digestive tract; Z80.0 Family history of malignant neoplasm of digestive organs; I10 Essential (primary) hypertension; K21.9 Gastro-esophageal reflux disease without esophagitis; M19.90 Unspecified osteoarthritis, unspecified site; Z86.718 Personal history of other venous thrombosis and embolism; Z87.891 Personal history of nicotine dependence; Z79.82 Long term (current) use of aspirin; Z79.899 Other long term (current) drug therapy; Z88.5 Allergy status to narcotic agent; Z91.030 Bee allergy status; Z85.828 Personal history of other malignant neoplasm of skin; Z96.651 Presence of right artificial knee joint; Z80.3 Family history of malignant neoplasm of breast
CPT/HCPCS: 45380; 88305; J2704

== ENCOUNTER → 2020-12-21 | Outpatient (CLI) | payer MEDICARE, OTHER ==
--- NOTE | 2020-12-21 18:37 | ECHOF ---
Referral Reason:R94.31 Abnormal EKG MEASUREMENTS -------- HEIGHT: 182.9 cm WEIGHT: 163.3 kg BP: RVIDd: 3.7 cm (< 3.3) IVSd: 1.3 cm (0.6 - 1.1) LVIDd: 4.8 cm (3.9 - 5.3) LVPWd: 1.4 cm (0.6 - 1.1) IVSs: 1.8 cm LVIDs: 3.9 cm LVPWs: 1.4 cm LA Diam: 3.8 cm (2.7 - 3.8) Ao Diam: 2.8 cm (2.0 - 3.7) AV Cusp: 2.9 cm (1.5 - 2.6) MV E Bull: 0.51 m/s MV DecT: 176 ms MV A Bull: 0.52 m/s MV E/A Ratio: 0.99 RAP: 5.00 mmHg RVSP: 11.91 mmHg FINDINGS -------- Undetermined rhythm. Morbid Obesity This was a techncally difficult study with suboptimal views, , Lumason utilized for enhancement of images. The left ventricular size is normal. Overall left ventricular systolic function is mild-moderately impaired with, an EF between 40 - 45 %. The right ventricle is normal in size. The left atrial size is normal. The right atrial size is normal. 5.0mg OF Lumason UTLIZED: 2 OR MORE WALL SEGMENTS NOT VISUALIZED. The aortic valve was not well visualized. Mild mitral regurgitation is present. The tricuspid valve was not well visualized. The pulmonic valve was not well visualized. The aortic root size is normal. There is no pericardial effusion. CONCLUSIONS -------- 1. Morbid Obesity 2. This was a techncally difficult study with suboptimal views, , Lumason utilized for enhancement of images. 3. The left ventricular size is normal. 4. Overall left ventricular systolic function is mild-moderately impaired with, an EF between 40 - 45 %. 5. The right ventricle is normal in size. 6. The left atrial size is normal. 7. The right atrial size is normal. 8. 5.0mg OF Lumason UTLIZED: 2 OR MORE WALL SEGMENTS NOT VISUALIZED. 9. The aortic valve was not well visualized. 10. Mild mitral regurgitation is present. 11. The tricuspid valve was not well visualized. 12. The pulmonic valve was not well visualized. 13. The aortic root size is normal. 14. There is no pericardial effusion. NON LICENSED NUCLEAR EQUIPMENT OPERATOR: Izzy Carreon RDCS
== END | disposition home or self-care (01) ==
LOC: RADECHMAIN 13:55
PROVIDERS: ATTEND Family Medicine
DX: I34.0 Nonrheumatic mitral (valve) insufficiency (principal)
CPT/HCPCS: C8929; Q9950; 93306

== ENCOUNTER 2020-12-22 13:17 | Emergency (ER) | payer MEDICARE, OTHER ==
[2020-12-22] MEDS ORDERED: DIPH,PERTUS(ACELL)TETVAC-LF 0.5 ML VIAL IM ONE (13:27)
--- NOTE | 2020-12-22 13:34 | ED ---
Fall HPI <NealGustavo Nettles - Last Filed: 12/22/20 16:27> - General Source: patient, EMS, RN notes reviewed - History of Present Illness MD Complaint: fall <Cristian Joshi - Last Filed: 12/22/20 16:32> - General Stated Complaint: Finger Injury Time Seen by Provider: 12/22/20 13:17 - History of Present Illness Initial Comments: This is a 65-year-old male who states he tripped and fell onto an extended right hand he complained of a laceration and pain to the right 3rd finger he is predominantly right-handed. Patient states he had bleeding is at pain to the adjacent pain to the ring finger. No other complaints of any other injury he denies shortness last tetanus shot was. He was given IV pain medication by paramedics in route. He does not require any other pain medication at this time. He (Cristian Joshi) - Related Data Home Medications Medication Instructions Recorded Confirmed Ascorbic Acid [Vitamin C] 1,000 mg PO DAILY 02/07/15 12/22/20 Metoprolol Succinate (ER) [Toprol 25 mg PO DAILY 02/07/15 12/22/20 XL] Omeprazole [PriLOSEC] 20 mg PO DAILY 02/07/15 12/22/20 Sertraline [Zoloft] 50 mg PO DAILY 02/07/15 12/22/20 Sildenafil Citrate [Viagra] 100 mg PO DAILY PRN 02/07/15 12/22/20 Vitamin B Complex 1 cap PO DAILY 02/07/15 12/22/20 [place]-3/Dha/Epa/Fish Oil [Fish Oil 1 cap PO DAILY 05/19/17 12/22/20 EC 1,200 mg Softgel] Glucosamine Sulfate 500 mg PO DAILY 01/19/19 12/22/20 Aspirin EC [Ecotrin Low Dose] 81 mg PO DAILY 12/22/20 12/22/20 Calcium Carbonate [Calcium] 600 mg PO DAILY 12/22/20 12/22/20 hydroCHLOROthiazide [Hydrodiuril] 25 mg PO DAILY 12/22/20 12/22/20 Previous Rx's Medication Instructions Recorded Cephalexin [Keflex] 500 mg PO Q6HR 7 Days #28 cap 12/22/20 Cephalexin [Keflex] 500 mg PO Q6HR 7 Days #28 cap 12/22/20 Allergies Allergy/AdvReac Type Severity Reaction Status Date / Time venom-honey bee Allergy Swelling,re Verified 12/22/20 14:27 [bee venom (honey bee)] dness morphine AdvReac Severe Nausea & Verified 12/22/20 14:27 Vomiting Review of Systems ROS Other: All systems not noted in ROS Statement are negative. <Gustavo De Jesus - Last Filed: 12/22/20 16:27> ROS Other: All systems not noted in ROS Statement are negative. <Cristian Joshi - Last Filed: 12/22/20 16:32> ROS Statement: Those systems with pertinent positive or pertinent negative responses have been documented in the HPI. Past Medical History Past Medical History: Cancer, Deep Vein Thrombosis (DVT), GERD/Reflux, Hypertension, Osteoarthritis (OA) Additional Past Medical History / Comment(s): swelling ankles, DVT left leg in the leg, varicose veins, hx colon cancer-no chemo/radiation, skin cancer History of Any Multi-Drug Resistant Organisms: None Reported Past Surgical History: Bowel Resection, Hernia Repair, Joint Replacement, Orthopedic Surgery Additional Past Surgical History / Comment(s): L knee arthroplasty, 2015 RT COLECTOMY, arthroscopy left knee,carpel tunnel, TOTAL RIGHT KNEE Past Anesthesia/Blood Transfusion Reactions: Previous Problems w/ Anesthesia Additional Past Anesthesia/Blood Transfusion Reaction / Comment(s): woke up during knee surgery Past Psychological History: Anxiety Additional Psychological History / Comment(s): . 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 ,STARTED SMOKING AT AGE 17 quit smoking 1998, smoked 1ppd Past Drug Use History: None Reported - Past Family History Mother Family Medical History: Cancer Additional Family Medical History / Comment(s): THROAT,BREAST Father Family Medical History: Cancer Additional Family Medical History / Comment(s): COLON Brother(s) Family Medical History: Cancer <Cristian Joshi - Last Filed: 12/22/20 16:32> General Exam General appearance: alert, anxious Head exam: Present: atraumatic, normocephalic, normal inspection ENT exam: Present: normal exam, mucous membranes moist Neck exam: Present: normal inspection, full ROM. Absent: tenderness, meningismus, lymphadenopathy Extremities exam: Present: tenderness, normal capillary refill, other (Lacerations to the lower aspect of the PIP joint of the right third finger tenderness palpation of the joint distally at the PIP joint there is a deformity which patient states is chronic. He also has tenderness over the ring finger. No gross deformity however no pain to palpation proximal this no). Absent: full ROM Back exam: Present: full ROM Neurological exam: Present: alert, oriented X3, CN II-XII intact Psychiatric exam: Present: normal affect, normal mood Skin exam: Present: warm, dry, normal color. Absent: intact <Cristian Joshi - Last Filed: 12/22/20 16:32> - General Exam Comments Initial Comments: This is a well-developed well-nourished awake alert oriented 3 male Jimmy Coma Scale of 15 (Cristian Joshi) Course Vital Signs 12/22/20 13:20 Temperature 98.0 F Pulse Rate 64 Respiratory 18 Rate Blood Pressure 115/114 O2 Sat by Pulse 96 Oximetry Procedures - Laceration Laceration #1 Consent Obtained: verbal consent Indication: laceration Site: hand Size (cm): 3 Description: linear Depth: involves tendon Anesthetic Used: lidocaine 1% Anesthesia Technique: local infiltration Amount (mls): 4 Pre-repair: wound explored, irrigated extensively (with saline pressure irrigation) Type of Sutures: nylon Size of Sutures: 5-0 Number of Sutures: 5 Technique: simple, interrupted Patient Tolerated Procedure: well - Orthopedic Splinting/Casting Injury #1 Side: right Upper Extremity Injury Location: short arm Upper Extremity Immobilizer: volar splint <Gustavo De Jesus - Last Filed: 12/22/20 16:27> - Laceration Laceration #1 Additional Comments: Able to visualize flexor tendon, unable to see rupture however patient is not able to flex the right third PIP joint so suspect tendon rupture. (Gustavo De Jesus) Medical Decision Making - Radiology Data Radiology results: report reviewed (Patient reviewed evidence of a fractured fourth right metacarpal bone. Also evidence of a chip fracture in the middle finger at the proximal interphalangeal joint.), image reviewed <Cristian Joshi - Last Filed: 12/22/20 16:32> - Medical Decision Making I did discuss the findings with the patient and the patient's . Patient does demonstrate evidence of a right fourth metacarpal fracture. Patient will be placed in a splint the laceration is repaired by Gustavo my physician assistant product manager. [facility]. (Cristian Joshi) Disposition <Gustavo De Jesus - Last Filed: 12/22/20 16:27> Is patient prescribed a controlled substance at d/c from ED?: No <AdiCristian - Last Filed: 12/22/20 16:32> Clinical Impression: Fall, Fracture, metacarpal, Other injury of flexor muscle, fascia and tendon of right middle finger at forearm level, initial encounter Disposition: HOME SELF-CARE Condition: Good Instructions (If sedation given, give patient instructions): Hand Fracture (ED) Additional Instructions: Ice, elevation, [id number] Tylenol for pain as discussed Prescriptions: Cephalexin [Keflex] 500 mg PO Q6HR 7 Days #28 cap Cephalexin [Keflex] 500 mg PO Q6HR 7 Days #28 cap Referrals: Gill Agarwal DO [Primary Care Provider] - 1-2 days John Howell DO [Doctor of Osteopathic Medicine] - 1-2 days
[2020-12-22 14:10] VITALS: PULSE 64; RESP 18; TEMP 98
--- NOTE | 2020-12-22 14:19 | XR ---
EXAMINATION TYPE: XR hand complete RT DATE OF EXAM: 12/22/2020 COMPARISON: NONE HISTORY: Laceration TECHNIQUE: 3 views FINDINGS: There is nondisplaced oblique fracture of the base of the fourth metacarpal. There is no di slocation. There is moderate osteoarthritis at the third MP joint with slight flexion deformity. Ther e is some spurring at the first carpometacarpal joint. There is spurring at the first MP joint. IMPRESSION: Nondisplaced fracture of the fourth metacarpal. Osteoarthritis.
[2020-12-22] MEDS ORDERED: LIDOCAINE 1% INJ 10MG/ML (20 ML MDV) SQ ONE (14:34)
[2020-12-22] MEDS ORDERED: BACITRACIN OINT 1 EACH PACKET TOPICAL STA (15:28)
[2020-12-22] MEDS ORDERED: CEPHALEXIN 500MG STARTER PACK 4 CAP BTL PO STA (16:05)
[2020-12-22 16:51] VITALS: BP 168/90
== END 2020-12-22 16:50 | disposition home or self-care (01) ==
LOC: EC 13:17
DX: S62.604A Fracture of unspecified phalanx of right ring finger, initial encounter for closed fracture (principal); S62.612A Displaced fracture of proximal phalanx of right middle finger, initial encounter for closed fracture; I10 Essential (primary) hypertension; F41.9 Anxiety disorder, unspecified; W01.0XXA Fall on same level from slipping, tripping and stumbling without subsequent striking against object, initial encounter; Z79.82 Long term (current) use of aspirin; Z85.038 Personal history of other malignant neoplasm of large intestine; Z86.718 Personal history of other venous thrombosis and embolism; Z87.891 Personal history of nicotine dependence; Z23 Encounter for immunization; K21.9 Gastro-esophageal reflux disease without esophagitis
CPT/HCPCS: 99283; 12002; 90471; 96372; 73130; 90715; J2001

== ENCOUNTER 2020-12-27 09:10 | Day surgery (SDC) | payer MEDICARE, OTHER ==
[2020-12-25 14:06] VITALS: BMI 48.8
[~2020-12-27 09:10] MED LIST changes: +LIDOCAINE 1% (10MG/ML) FOR IV START INTRADERMA PRN; -PROPOFOL 10 MG/ML 20 ML VIAL IV ONE
[2020-12-27 09:42] VITALS: RESP 16; TEMP 97.9
[2020-12-27] MEDS ORDERED: MIDAZOLAM 2 MG/2 ML VIAL ONE (10:40)
[2020-12-27] MEDS ORDERED: PROPOFOL 10 MG/ML 20 ML VIAL IV ONE (10:40)
[2020-12-27] MEDS ORDERED: fentaNYL (PF) 50 MCG/ML 2 ML AMP ONE (10:40)
[2020-12-27] MEDS ORDERED: LIDOCAINE 1% INJ 10MG/ML (20 ML MDV) ONE (10:40)
[2020-12-27] MEDS ORDERED: KETAMINE 10 MG/ML 20 ML VIAL ONE (10:40)
--- NOTE | 2020-12-27 11:28 | P.PCN ---
Date of Procedure: 12/27/20 Description of Procedure: BRIEF HISTORY: Patient is a 65-year-old male presenting for outpatient colonoscopy for evaluation of history of colon cancer. Patient has a history of colon cancer diagnosed in 2015. He is status post right hemicolectomy. Last colonoscopy approximately 2 years ago. PROCEDURE PERFORMED: Colonoscopy with polypectomy. PREOPERATIVE DIAGNOSIS: History of colon cancer, last colonoscopy 2018. ESTIMATED BLOOD LOSS: Minimal. IV sedation per Anesthesia. PROCEDURE: After informed consent was obtained, the patient, was brought into the endoscopy unit. IV sedation was administered by Anesthesia under continuous monitoring. Digital rectal examination was normal. Initially the Olympus CF-190 flexible video colonoscope was then inserted in the rectum, gradually advanced into the cecum without any difficulty. Careful examination was performed as the scope was gradually being withdrawn. Ileocecal valve and the appendiceal orifice were visualized and appeared normal. Prep was excellent. Mucosa of the cecum, ascending colon, transverse colon, descending colon, sigmoid colon, and rectum appeared [place].. 2 diminutive polyps measuring 1 and 2 mm in size removed from the sigmoid colon with cold forcep polypectomy. A few scattered diverticula not ed in the sigmoid colon. Low-grade internal hemorrhoids seen. Retroflexion was performed in the rectum and no lesions were seen. The patient tolerated the procedure well. IMPRESSION: 2 diminutive polyps removed with cold forcep polypectomy from the sigmoid colon. Mild sigmoid diverticulosis. Internal hemorrhoids. RECOMMENDATIONS: Findings of this examination were discussed with the patient and his family. Okay to resume diet. Okay to resume medications. Await pathology from polypectomies. Recommend repeat colonoscopy in 3 years given history of colon cancer.
[2020-12-27 11:56] VITALS: BP 145/88; PULSE 100
== END 2020-12-27 12:13 | disposition home or self-care (01) ==
LOC: ORWHC2ENDO 09:10
PROVIDERS: ATTEND Internal Medicine
DX: Z12.11 Encounter for screening for malignant neoplasm of colon (principal); Z85.038 Personal history of other malignant neoplasm of large intestine; K63.5 Polyp of colon; I10 Essential (primary) hypertension; Z87.891 Personal history of nicotine dependence; F41.9 Anxiety disorder, unspecified; K21.9 Gastro-esophageal reflux disease without esophagitis; Z88.5 Allergy status to narcotic agent; Z91.030 Bee allergy status; Z79.899 Other long term (current) drug therapy
CPT/HCPCS: 88305; 45380; J2250; J2001; J3010; J2704